=== PATIENT | female | born 1960 | race Caucasian/White ===

== ENCOUNTER 2019-04-03 13:36 | Day surgery (SDC) | payer BC ==
[2019-04-02 14:14] VITALS: BMI 28.3
--- NOTE | 2019-04-03 09:23 | HP ---
History & Physical Update - Physical Physical: No Change - Assessment Assessment: No Change - Plan Plan: No Change (H&P reviwed , no changes ,for hysteroscpy, D&C)
--- NOTE | 2019-04-03 11:37 | OP ---
Operative Note - Note: Operative Date: 04/03/19 Pre-Operative Diagnosis: PMB Operation: hysteroscopy , D&C, polypectomy Findings: uterus NS, EM atrophic, patchy area fundal area, no submucos myoma Post-Operative Diagnosis: Same as Pre-op Surgeon: Nhan Zelaya Anesthesia: General Specimens Removed: EMC, EM polyp Estimated Blood Loss (mls): 25 Blood Volume Replaced (mls): 0 Operative Report Dictated: Yes
[2019-04-03 13:26] VITALS: TEMP 98.1
[~2019-04-03 13:36] MED LIST: ELECTROLYTE-148 SOLN 1,000 ML IV SCH; IBUPROFEN 600 MG TABLET (FP) PO PRN; IBUPROFEN 800 MG/8 ML IJ IVPB PRN; LACTATED RINGERS SOLUTION 1,000 ML IV SCH; ONDANSETRON 4 MG/2 ML VIAL IVPUSH PRN; oxyCODONE HCL 5 MG TABLET PO PRN
[2019-04-03 17:22] VITALS: BP 132/85; PULSE 84
--- NOTE | 2019-04-05 16:52 | PATH ---
Surgical Pathology Report Patient Name: BULMARO MCKAY [facility]. Rec. #: [id number] /Age/Gender: 1960 (Age: 59) / F Account: [id number] Location: [facility] SURGICAL Taken: 04/03/2019 Received: 04/03/2019 Reported: 04/05/2019 Physicians: Nhan Zelaya M.D. Specimen(s) Received ENDOMETRIAL CURETTINGS Clinical History Postmenopausal bleeding Final Diagnosis ENDOMETRIAL CURETTINGS: SUPERFICIAL STRIPS OF ENDOMETRIAL GLANDS AND SEPARATE STROMA, MAY REPRESENT ATROPHIC ENDOMETRIUM IN THE PROPER CLINICAL SETTING. SEPARATE FRAGMENTS OF UNREMARKABLE ENDOCERVICAL GLANDS AND SQUAMOUS EPITHELIUM. Electronically Signed Dideir Heller M.D. Gross Description Received in formalin labeled "endometrial curettings," is a 1.5 x 1.3 x 0.3 cm aggregate of pino-brown soft tissue fragments admixed with mucus. The formalin is filtered and the specimen is entirely submitted in one cassette. 04/04/2019 [facility]04/04/2019
--- NOTE | 2019-04-10 13:18 | OP ---
DATE OF OPERATION: 04/03/2019 PREOPERATIVE DIAGNOSIS: Endometrial polyp and thickened endometrium. POSTOPERATIVE DIAGNOSIS: Endometrial polyp and thickened endometrium. PROCEDURE: Hysteroscopy, dilation and curettage, polypectomy. SURGEON: Nhan Zelaya MD ANESTHESIA: General. ESTIMATED BLOOD LOSS: 25 mL. DESCRIPTION OF PROCEDURE: Patient was taken to the operating room. Under adequate general anesthesia in dorsal lithotomy position, examination under anesthesia revealed external genitalia to be normal. Vagina was normal. Cervix was clean. No lesion. Uterus was normal size. Adnexa, no masses were palpable. Then with a weighted speculum in the vagina, anterior lip of the cervix was grasped with a single-hook tenaculum. Uterine cavity was sounded to 8 cm then cervix was slightly dilated then hysteroscope was introduced. Visualization of endocervical canal appeared to be normal. Most of the endometrium was atrophic except for the fundal area, which was a patchy area of endometrium 1 small floating polyp. Both cornual regions were identified. No other abnormality was noted. There was a polyp removed. Then uterine cavity was curetted in gambling counsellor fashion. Small amount of tissue was obtained. Patient tolerated procedure well. Left the OR in good condition. Sejal [id number]
== END 2019-04-03 14:20 | disposition home or self-care (01) ==
LOC: JASU-SURG 13:36
PROVIDERS: ATTEND Obstetrics & Gynecology
PROC: 0UJD8ZZ Inspection of Uterus and Cervix, Via Natural or Artificial Opening Endoscopic (ICD-10-PCS; 2019-04-03)
PROC: 0UB97ZX Excision of Uterus, Via Natural or Artificial Opening, Diagnostic (ICD-10-PCS; principal; 2019-04-03 10:00)
PROC: 0UDB7ZX Extraction of Endometrium, Via Natural or Artificial Opening, Diagnostic (ICD-10-PCS; 2019-04-03 10:00)
DX: N84.0 Polyp of corpus uteri (principal)
CPT/HCPCS: 94760